=== PATIENT | male | born 1980 | race Caucasian/White ===

== ENCOUNTER 2023-11-18 08:30 | Outpatient (RCR) | payer OTHER, SELFPAY ==
[2023-11-07 11:57] VITALS: BP 130/90; PULSE 76; TEMP 36.6
[2023-11-07 12:02] VITALS: BMI 30.8
--- NOTE | 2023-11-07 12:53 | PC.ADMIT ---
Patient is a 43 year old male who was referred to PHP by [facility] d/t increased anxiety with panic secondary to work stress. Patient stated he has worked for the company for 20 years and started in a new role at work in May and feels this is not a good fit for him. He feels overwhelmed and unable to function. Patient reports having panic attacks. He has since taken a leave of absence from work d/t symptoms. Ben is alert and oriented x4. Calm and cooperative. He presents with depressed mood and anxious affect. Denied SI, No HI. I gave him a copy of his safety plan if needed. Medications reconciled with patient and patient's pharmacy. Taking a leave of absence from work. New role at work started in May,.
--- NOTE | 2023-11-07 17:42 | P.HPPSP_ITS ---
HPI Date of Service: 11/07/23 Chief Complaint: depression,anxiety Sources of Information: patient interviewed, chart reviewed and crisis/core team assessment reviewed Additional Sources of Information: Reviewed [facility] Initial Assessment from 11/04/23, met with patient and further explored salient portions of HPI, PPH, FH, PMH, SH, Sub Ab and trauma hx. HPI Narrative: This is the first [facility] admission for this 43 yo, , employed male who was referred by his PCP office. He has had a history of worsening anxiety symptoms since last Fall in the context of job transition/ work stressors. He has been on [employer]LVARO since Oct 17.. He reports having increasing difficulties functioning at work and in life. He says he has gotten to the point he can not accomplish even everyday things, cognitive and physical anxiety have been interfering. He has been experiencing debilitating panic attacks with more frequency which has resulted in calling out of work more frequently. He had trialed a couple of antidepressant medications over the past few months which caused side effects, or at best were ineffective. Last month he experienced such a severe panic attack at a family constitution party that he could not talk or respond. EMT was called and he was administered Ativan. He reports the following day was his lowest point, he could not drive, attend work or talk to anyone. He reports a slow recovery over the next few weeks, faking it to get by and needing to ecclesiastical worker. Appetite fair/limited. Reports 5-10 lb weight loss since September. FOrtimuately Sleep is intact. Denies SI, HI, AH, VH. Past Psychiatric History: No IPLOC, PHP, detox admissions Denies any suicide attempts He has trialed sertraline at 25 mg, fluoxetine 10 mg and Wellbutirn 100 mg, Lexapro. He did not tolerate those, most caused more anxiety. CURRENT MEDICATIONS: amlodipine 10 mg qd HCTZ 25 mg qd lorazepam 1 mg PRN (limits use at times due to sedation) albuterol inhaler potassium citrate [facility] Medical History (Updated 11/07/23 @ 18:04 by Oneida Bueno MD) Kidney stones Asthma Narrative: Hx of chronic kidney stones 20+yrs, dx w hyperparathyroidism by regional education coordinator - surgery was declined No seizures no concussions or TBI Social History: lives at home Employed in IT Substance History: Minimal alcohol use - seldom <1 beer. No cannabis. No illicit substance use No nicotine use hx Diagnostics Vital Signs (24Hr): Vital Signs - 24 hr 11/07/23 11:57 Temperature 97.8 F Pulse Rate 76 Blood Pressure 130/90 H BMI result Body Mass Index 30.8 Meds/Allergies Meds Home Medications ?Medication ?Instructions ?Recorded ?Confirmed ?Type albuterol sulfate 90 mcg/actuation 1 puff inhalation Q6H PRN wheezing 11/07/23 11/07/23 History aerosol inhaler amlodipine 10 mg tablet 10 mg PO DAILY 11/07/23 11/07/23 History hydrochlorothiazide 25 mg tablet 25 mg PO DAILY 11/07/23 11/07/23 History lorazepam 1 mg tablet 1 mg PO DAILY PRN anxiety 11/07/23 11/07/23 History potassium citrate 10 mEq (1,080 20 - 30 meq PO TID 11/07/23 11/07/23 History mg) tablet,extended release Allergies Allergies Allergy/AdvReac Type Severity Reaction Status Date / Time droperidol [From Inapsine] Allergy Paralytic Verified 11/07/23 11:57 affect. Mental Status Exam Mental Status Exam Narrative: MSE? Alert, oriented, in no acute distress. Calm, cooperative, engaged. No psychomotor agitation or neurovegetative retardation. Eye contact maintained. Mood anxious, affect variable, mood congruent. Speech normal. Thought process linear, coherent. Thought content related to stressors, denies any helplessness, hopelessness or SI.? No aggressive ideation or HI. No paranoia or delusional content elicited. No evidence of psychosis. Insight and judgment impaired. Telehealth Telehealth Location of provider rendering services: other (private office) Location of patient: other ([facility]) Patient Identification confirmed using: Name, : Yes Telehealth method: video Patient verbally consented to treatment: Yes Assessment & Plan Assessment & Plan (1) Generalized anxiety disorder: Status: Acute Code(s): F41.1 - Generalized anxiety disorder (2) Adjustment disorder with mixed anxiety and depressed mood: Status: Acute Code(s): F43.23 - Adjustment disorder with mixed anxiety and depressed mood Assessment and Plan: mixed anxiety (social anxiety, somatic anxiety/panic attacks, acute stress response) Plan Admit to PHP continue lorazepam 0.5 mg qd (at some point would benefit from taking strictly on PRN basis as may be complicating presentation) alternatively may switch to clonazepam if continues on daily basis pending results of recent lab work from PCP office [facility] reviewed continue to follow up as per protocol Patient educated on: diagnosis and medication risk/benefits Informed Consent: understands Reason for continued partial hosp. stay Substantial Risk for: inability to function and med/psych decompensation Certification I certify that partial hospital treatment is medically necessary due to the symptoms and problems resulting from the patient's mental illness and the failure to treat the patient at the partial hospital level of care would likely result in the patient requiring inpatient psychiatric care which could not be prevented at a less intensive level of care. Time Spent With Patient Time: Total time managing care of this patient today _60___ minutes.
--- NOTE | 2023-11-10 16:02 | HO.PHP ---
Client's case has been opened and reviewed in treatment team.
--- NOTE | 2023-11-18 22:06 | HO.PHPPROGNO ---
Subjective Subjective Date of Service: 11/18/23 Reason For Visit: depression,anxiety Interim History: Patient seen for follow-up, anticipating discharge at the end of program today.? Reports no acute issues or concerns. Medication compliant, takes lorazepam sparingly for anxiety. Regular medications well-tolerated. Denies any acute issues or concerns. Mood is stable.? Denies any hopelessness or SI. Denies thoughts of harming self or others at this time. Sleep, appetite, energy stable. Medication Compliance: Yes Side effects from medications: No Attending Groups: Yes Review of Systems Acute medical concerns: No Mental Status Exam Mental Status Exam Narrative: Alert, oriented, in no acute distress. Calm, cooperative. Mood stable, affect appropriate. Speech normal. Thought process linear, coherent, more goal-directed. Thought content related to stressors, future-oriented, denies any helplessness, hopelessness or SI.? No aggressive ideation or HI. No paranoia or delusional content elicited. No evidence of psychosis. Insight and judgment fair-good. Diagnostics Vital Signs (24Hr): BMI result Body Mass Index 30.8 Assessment & Plan Assessment & Plan (1) Generalized anxiety disorder: Status: Acute Code(s): F41.1 - Generalized anxiety disorder (2) Adjustment disorder with mixed anxiety and depressed mood: Status: Acute Code(s): F43.23 - Adjustment disorder with mixed anxiety and depressed mood Plan Discharge from [facility] continue regular medications no medications were started during his stay at [facility] will follow up with outpatient provider No refills needed at this time Patient educated on: diagnosis and medication risk/benefits Informed Consent: understands Reason for contiued partial hosp. stay Substantial Risk for: stable for discharge Certification I certify that partial hospital treatment is medically necessary due to the symptoms and problems resulting from the patient's mental illness and the failure to treat the patient at the partial hospital level of care would likely result in the patient requiring inpatient psychiatric care which could not be prevented at a less intensive level of care. Total time managing care of this patient today _30___ minutes. Discharge Plan Discharge Attending provider: Oneida Bueno Medications: Continued amlodipine 10 mg tablet 10 mg PO DAILY potassium citrate 10 mEq (1,080 mg) tablet extended release 20 - 30 meq PO TID hydrochlorothiazide 25 mg tablet 25 mg PO DAILY lorazepam 1 mg tablet 1 mg PO DAILY PRN (Reason: anxiety) albuterol sulfate 90 mcg/actuation HFA aerosol inhaler 1 puff inhalation Q6H PRN (Reason: wheezing) Stand Alone Forms: Patient Portal Discharge page Patient Education: Generalized Anxiety Disorder (GEN) Print Language: Italian
== END 2023-11-18 23:59 | disposition home or self-care (01) ==
LOC: HO.PHPA 08:30
PROVIDERS: Visit Provider Psychiatry & Neurology Psychiatry
DX: F41.1 Generalized anxiety disorder (principal); F43.23 Adjustment disorder with mixed anxiety and depressed mood; Z79.899 Other long term (current) drug therapy
CPT/HCPCS: 90791; 90853

== ENCOUNTER → 2023-11-18 08:30 | Outpatient (BNV) | payer OTHER, SELFPAY | PROVIDERS: Visit Provider Psychiatry & Neurology Psychiatry | DX: F41.1 Generalized anxiety disorder (principal); F43.23 Adjustment disorder with mixed anxiety and depressed mood | CPT/HCPCS: 90792; 99213 ==